=== PATIENT | female | born 1950 | race African-American/Black ===

== ENCOUNTER → 2017-10-03 | Outpatient (CLI) | payer OTHER ==
[2016-05-17 20:00] VITALS: BP 143/78
--- NOTE | 2017-10-03 15:01 | RAD ---
PQRS Compliance Statement: One or more of the following individualized dose reduction techniques were utilized for this examination: 1. Automated exposure control 2. Adjustment of the mA and/or kV according to patient size 3. Use of iterative reconstruction technique CT LUMBAR SPINE WO CONTRAST Clinical Indication: LBP WORSENING X 1 YEAR 0 BACK SURGERIES Comparison: CT lumbar spine without contrast June 22, 2016. TECHNIQUE: Helical CT imaging of the lumbar spine is performed without IV contrast. Findings: Stable small bone island in the left sacrum. The sacroiliac joints are symmetric. There is vacuum disc phenomenon and reactive endplate changes on the right at L5/S1. The lumbar spine alignment is unchanged. There is grade 1 anterolisthesis of L3 on L4 and L4 on L5. No significant disc space narrowing. No acute compression fracture. There are 2 small calcified uterine fibroids. Small left adnexal cyst is stable. Finding is abnormal in a female patient of this age but is probably benign. L1/L2: Minimal broad-based posterior disc bulge. Mild ligamentum flavum redundancy. Mild facet hypertrophy. Central canal is patent. Neural foramina are adequate. L2/L3: There is broad-based posterior disc bulge. Moderate facet hypertrophy. Central canal stenosis appears to be mild. There is moderate bilateral neural foraminal narrowing. L3/L4: Anterolisthesis at this level. Unroofing of disc. There is broad-based posterior disc bulge. Mild facet hypertrophy and ligamentum flavum redundancy. Central canal stenosis is moderate. Moderate bilateral neural foraminal narrowing. L4/L5: Anterolisthesis at this level. Unroofing of the disc. There is broad-based posterior disc bulge. Mild facet hypertrophy and ligamentum flavum redundancy. Central canal stenosis appears severe, AP diameter about 5 mm. Moderate bilateral neural foraminal narrowing. L5/S1: Mild broad-based posterior disc bulge. Moderate facet hypertrophy. Mild ligamentum flavum redundancy. No more than mild central canal stenosis. Neural foramina are adequate. IMPRESSION: 1. No acute compression fracture. Stable lumbar spine alignment. 2. There is degenerative spondylosis most advanced at L4/L5. Individual levels detailed above. Electronically signed by: Casey Segovia MD (10/03/2017 2:57 PM) [id number]
== END | disposition home or self-care (01) ==
LOC: CT 13:48
DX: M47.896 Other spondylosis, lumbar region (principal)
CPT/HCPCS: 72131

== ENCOUNTER → 2017-11-17 | Outpatient (CLI) | payer OTHER | END | disposition home or self-care (01) | LOC: MAMMO 09:13 | DX: Z12.31 Encounter for screening mammogram for malignant neoplasm of breast (principal) | CPT/HCPCS: 77067 ==

== ENCOUNTER → 2018-02-19 | Outpatient (CLI) | payer OTHER | END | disposition home or self-care (01) | LOC: US 09:07 | DX: N83.202 Unspecified ovarian cyst, left side (principal); Z78.0 Asymptomatic menopausal state | CPT/HCPCS: 76830; 76856 ==

== ENCOUNTER → 2018-12-03 | Outpatient (CLI) | payer OTHER ==
[2016-05-17 20:00] VITALS: BP 143/78
--- NOTE | 2018-12-03 16:11 | RAD ---
DATE: 12/03/2018 EXAM: DIGITAL SCREEN BILAT W/CAD HISTORY: Asymptomatic screening mammogram COMPARISON: Prior mammograms from 11/17/2017, 08/29/2016 This study was interpreted with the benefit of Computerized Aided Detection (CAD). Breast Density: FATTY The breast parenchyma is primarily fatty replaced. Breast parenchyma level density A. FINDINGS: Bilateral CC and MLO views of the breasts were performed. Right breast: There is a focal asymmetry in the upper outer right breast at middle to measuring 7 mm, 7-8 cm from the nipple. Further evaluation spot compression CC and MLO views is recommended as well as possible ultrasound. Left breast: There are no suspicious microcalcifications, masses or areas of architectural distortion. Findings of left breast are stable from prior mammogram. IMPRESSION: 1. Incomplete right mammogram. Additional imaging is recommended, as detailed above. 2. Negative left mammogram. BI-RADS CATEGORY: 0 INCOMPLETE: NEEDS ADDITIONAL IMAGING EVALUATION AND/OR PRIOR MAMMOGRAMS FOR COMPARISON. RECOMMENDED FOLLOW-UP: ADD ADDITIONAL IMAGING PQRS compliance statement: Mammography is a sensitive method for finding small breast cancers, but it does not detect them all and is not a substitute for careful clinical examination. A negative mammogram does not negate a clinically suspicious finding and should not result in delay in biopsying a clinically suspicious abnormality. "Our facility is accredited by the [employer] Mammography Program."
== END | disposition home or self-care (01) ==
LOC: MAMMO 13:55
PROVIDERS: ATTEND Pediatrics
DX: Z12.31 Encounter for screening mammogram for malignant neoplasm of breast (principal)
CPT/HCPCS: 77067

== ENCOUNTER → 2019-01-21 | Outpatient (CLI) | payer OTHER ==
[2016-05-17 20:00] VITALS: BP 143/78
--- NOTE | 2019-01-21 11:39 | RAD ---
DATE: 01/21/2019 EXAM: MAMMO SANDEEP DIAG RT HISTORY: Suspicious screening study COMPARISON: 12/03/2018 This study was interpreted with the benefit of Computerized Aided Detection (CAD). Breast Density: SCATTERED The breast parenchyma shows scattered fibroglandular densities. Breast parenchyma level B. FINDINGS: On the screening study a small opacity was noted laterally in the right breast on the cc view. Today's spot compression cc view of that region does not demonstrate a discrete nodule. There are patchy fibroglandular opacities. We also performed a straight mediolateral view as well as CC tomosynthesis imaging, neither of which demonstrated a discrete nodule. The appearance on the screening study appears to have represented a summation shadow. IMPRESSION: There is no mammographic evidence of malignancy in the right breast. Routine yearly mammographic surveillance is suggested. BI-RADS CATEGORY: 2 BENIGN FINDING(S) RECOMMENDED FOLLOW-UP: 12M 12 MONTH FOLLOW-UP PQRS compliance statement: Patient information was entered into a reminder system with a target due date for the next mammogram. Mammography is a sensitive method for finding small breast cancers, but it does not detect them all and is not a substitute for careful clinical examination. A negative mammogram does not negate a clinically suspicious finding and should not result in delay in biopsying a clinically suspicious abnormality. "Our facility is accredited by the [employer] Mammography Program."
== END | disposition home or self-care (01) ==
LOC: MAMMO 11:00
PROVIDERS: ATTEND Pediatrics
DX: R92.8 Other abnormal and inconclusive findings on diagnostic imaging of breast (principal)
CPT/HCPCS: 77065; G0279; 77061

== ENCOUNTER → 2019-08-07 | Outpatient (CLI) | payer OTHER ==
[2016-05-17 20:00] VITALS: BP 143/78
--- NOTE | 2019-08-07 13:57 | KCIC ---
EXAM: Dual energy x-ray absorptiometry (DEXA). HISTORY: Postmenopausal female presents for osteoporosis screening. COMPARISON: None. TECHNIQUE: Dual energy x-ray absorptiometry of the lumbar spine and left hip was performed. Calculation of bone mineral density based on standard deviations above or below the expected young adult normal value (T-score) was completed. FINDINGS: The average bone mineral density in the 1st through 4th lumbar vertebrae is 1.107 g/cmxcm, corresponding with a T-score of 0.5. The average total bone mineral density in the left hip is 0.902 g/cmxcm, corresponding with a T-score of -0.3. IMPRESSION: Normal bone mineral density. Note: Definitions established by the World Health Organization: 1. Normal: T-score is -1.0 or above. 2. Osteopenia: T-score is between -1.0 and -2.5 . 3. Osteoporosis: T-score is -2.5 or below. Electronically signed by: Nisha Gloria MD (08/07/2019 1:55 PM) [place] [id number]
== END | disposition home or self-care (01) ==
LOC: KCIC DEXA 11:41
PROVIDERS: ATTEND Pediatrics
DX: Z13.820 Encounter for screening for osteoporosis (principal); Z78.0 Asymptomatic menopausal state
CPT/HCPCS: 77080

== ENCOUNTER → 2021-06-15 | Outpatient (CLI) | payer OTHER ==
[2016-05-17 20:00] VITALS: BP 143/78
--- NOTE | 2021-06-15 11:54 | RAD ---
EXAM: Bilateral digital screening mammogram with tomosynthesis. HISTORY: 70-year-old female presents for screening mammography. TECHNIQUE: Full-field digital craniocaudal and mediolateral oblique 2D and 3D tomosynthesis images of both breasts are obtained for evaluation. Computer aided detection was applied. COMPARISON: 12/03/2018 BREAST PARENCHYMAL DENSITY: Level B - Scattered fibroglandular densities. FINDINGS: There is no new suspicious mass, microcalcification or region of architectural distortion. IMPRESSION: BI-RADS Category 2: Benign finding(s). RECOMMENDATION: Annual mammography is recommended. If your mammogram demonstrates that you have dense breast tissue, which could hide abnormalities, and if you have other risk factors for breast cancer that have been identified, you might benefit from s upplemental screening tests that may be suggested by your ordering physician. Dense breast tissue, i n and of itself, is a relatively common condition. This information is not provided to cause undue c oncern, but rather to raise your awareness and to promote discussion with your physician regarding th e presence of other risk factors, in addition to dense breast tissue. A report of your mammography re sults will be sent to you and your physician. You should contact your physician if you have any ques tions or concerns regarding this report. Mammography is a sensitive method for finding small breast cancers, but it does not detect them all a nd is not a substitute for careful clinical examination. A negative mammogram does not negate a clin ically suspicious finding and should not result in delay in biopsying a clinically suspicious abnorma lity. PQRS compliance statement - Patient information was entered into a reminder system with a target due date for the next mammogram. "Our facility is accredited by the [employer] Mammography Program." Electronically signed by: Nisha Gloria MD (06/15/2021 11:52 AM) [id number]
== END ==
LOC: MAMMO 10:48
PROVIDERS: ATTEND Pediatrics
DX: Z12.31 Encounter for screening mammogram for malignant neoplasm of breast (principal)
CPT/HCPCS: 77063; 77067

== ENCOUNTER → 2021-06-15 | Outpatient (CLI) | payer OTHER ==
[2016-05-17 20:00] VITALS: BP 143/78
--- NOTE | 2021-06-15 11:44 | RAD ---
EXAM: Lumbar spine CT without contrast. HISTORY: Lower extremity paresthesia. TECHNIQUE: Computed tomographic images of the lumbar spine were obtained without contrast. Multiplana r reformatting was performed. *One or more of the following individualized dose reduction techniques were utilized for this examina tion: 1. Automated exposure control. 2. Adjustment of the mA and/or kV according to patient size. 3. Use of iterative reconstruction technique. COMPARISON: 10/03/2017 and 06/22/2016 FINDINGS: There is 2 mm grade 1 anterolisthesis of L2 on L3, 4 mm grade 1 anterolisthesis of L3 on L4 , 5 mm grade 1 anterolisthesis of L4 on L5 and 2 mm retrolisthesis of L1 on L2. There is multilevel e ndplate remodeling. There is vacuum phenomenon within the disc spaces at the lower lumbar levels. The re is a 10 mm sclerotic lesion within the right posterior superior aspect of L4. There is no acute or subacute fracture. There is a 1.2 cm exophytic lesion along the posterior lower mid zone of the left kidney. 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 There is a small calcified uterine fibroid. There is a 3.8 cm left ovarian cyst. At L1-L2, there is a disc bulge and endplate remodeling. There is mild right and moderate left facet arthropathy. There is mild left foraminal stenosis. At L2-L3, there is a suspected right lateral recess disc protrusion superimposed on a disc bulge and endplate remodeling. There is moderate to severe right and severe left facet arthropathy. There is hy pertrophy of the ligamentum flavum. There is grade 1 anterolisthesis. There is mild right and moderat e to severe left foraminal stenosis. There is moderate central canal stenosis. At L3-L4, there is a left lateral recess to foraminal disc protrusion and slight superior extrusion s uperimposed on a disc bulge and endplate osteophytosis. There is severe bilateral facet arthropathy. There is hypertrophy of the ligamentum flavum. There is grade 1 anterolisthesis. There is moderate ri ght and severe left foraminal stenosis. There is severe central canal stenosis. At L4-L5, there is a right paracentral to foraminal disc protrusion and slight superior extrusion sup erimposed on a disc bulge and endplate osteophytosis. There is severe bilateral facet arthropathy. Th ere is grade 1 anterolisthesis. There is severe right and moderate left foraminal stenosis. There is severe central canal stenosis. At L5-S1, there is a right foraminal to extra foraminal disc protrusion and slight superior extrusion superimposed on a disc bulge and endplate osteophytosis. There is moderate right and mild left facet arthropathy. There is severe right and mild left foraminal stenosis. IMPRESSION: 1. Multilevel degenerative change involving the lumbar spine, described in detail above. These findin gs are minimally increased compared to the prior exam. There is associated mild left foraminal stenos is at L1-L2, mild right and moderate to severe left foraminal and moderate central canal stenosis at L2-L3, moderate right and severe left foraminal and severe central canal stenosis at L3-L4, severe ri ght and moderate left foraminal and severe central canal stenosis at L4-5 and severe right and mild l eft foraminal stenosis at L5-S1. 2. Multilevel degenerative listhesis. 3. Slight interval increase in the size of a sclerotic lesion within L4. The slow interval change ove r a five-year interval favors benignity. 4. Small calcified uterine fibroid. 5. 3.8 cm left ovarian cyst. This is increased compared to a measurement of 2.4 cm on the study perfo rmed 06/22/2016. 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 Electronically signed by: Nisha Gloria MD (06/15/2021 11:42 AM) [id number]
--- NOTE | 2021-06-15 11:57 | RAD ---
EXAM: Lumbar spine, 5 views. HISTORY: Paresthesia. COMPARISON: CT obtained on the same date. FINDINGS: 5 views of the lumbar spine are obtained. There is lumbar dextroscoliosis centered at L2. T here is slight rightward lateral translation of L2 on L3 and L3 on L4. There is grade 1 anterolisthes is of L4 and L5, and to a lesser extent, L2 on L3, L3 and L4 and L5 on S1. There is multilevel endpla te remodeling and facet arthropathy. There are calcified uterine fibroids. There is no fracture. IMPRESSION: 1. Multilevel degenerative change throughout the lumbar spine, described above. 2. Lumbar scoliosis and multilevel listhesis. Electronically signed by: Nisha Gloria MD (06/15/2021 11:55 AM) [id number]
== END ==
LOC: CT 10:56
DX: M47.817 Spondylosis without myelopathy or radiculopathy, lumbosacral region (principal); M51.27 Other intervertebral disc displacement, lumbosacral region; M48.07 Spinal stenosis, lumbosacral region; M41.86 Other forms of scoliosis, lumbar region; M43.16 Spondylolisthesis, lumbar region; I70.0 Atherosclerosis of aorta; I70.8 Atherosclerosis of other arteries; D25.9 Leiomyoma of uterus, unspecified; N83.202 Unspecified ovarian cyst, left side
CPT/HCPCS: 72110; 72131